=== PATIENT | male | born 1965 | race Caucasian/White ===

== ENCOUNTER 2017-05-26 06:49 | Day surgery (SDC) | payer OTHER ==
[2017-05-22 12:25] VITALS: BMI 32.7
[2017-05-26] MEDS ORDERED: PROPOFOL 20 ML ONE ×3 (06:52→09:16)
[2017-05-26] MEDS ORDERED: LIDOCAINE HCL/PF 2% SDV 5ML VIAL ONE (06:52)
[2017-05-26 09:26] VITALS: TEMP 98.1
[2017-05-26 09:49] VITALS: BP 125/69; PULSE 60
--- NOTE | 2017-05-27 11:28 | PATH ---
Surgical Pathology Report Patient Name: MORIS REYES [facility]. Rec. #: [id number] /Age/Gender: 1965 (Age: 51) / M Account: [id number] Location: [facility]-ENDOSCOPY Taken: 05/26/2017 Received: 05/26/2017 Reported: 05/27/2017 Physicians: Moris Koenig M.D. Specimen(s) Received BX PROXIMAL RIGHT COLON Clinical History Rule out colon cancer Polyps Final Diagnosis COLON, PROXIMAL RIGHT, POLYPECTOMY: COLONIC POLYP WITH SERRATED ARCHITECTURE AND AREAS CONSISTENT WITH SESSILE SERRATED ADENOMA. SUBMUCOSAL ADIPOSE TISSUE CONSISTENT WITH LIPOMA PRESENT. Comment: Sessile serrated polyps are not dysplastic (adenomatous). They share morphologic features with hyperplastic polyps and, in the past, have been referred to as such. However, recent studies indicate that they harbor BRAF mutations and may represent neoplastic precursors to a subset of sporadic, microsatellite unstable colon cancers. They are generally treated and followed similar to colonic adenomas. FRANCK Talavera and Rose, [facility] 2010, 139(5):9222-4667. Electronically Signed Tien Trotter M.D. Gross Description Received in formalin labeled "proximal right colon polyp," is a 0.7 x 0.6 x 0.3 cm harrington, polypoid portion of soft tissue. The specimen is submitted in toto in one cassette. 05/26/201705/26/2017
== END 2017-05-26 09:58 | disposition home or self-care (01) ==
LOC: FASU-ENDO 06:49
PROVIDERS: ATTEND Internal Medicine Gastroenterology
PROC: 0DBK8ZX Excision of Ascending Colon, Via Natural or Artificial Opening Endoscopic, Diagnostic (ICD-10-PCS; principal; 2017-05-26 08:50)
PROC: 3E0H8GC Introduction of Other Therapeutic Substance into Lower GI, Via Natural or Artificial Opening Endoscopic (ICD-10-PCS; 2017-05-26 08:50)
DX: Z12.11 Encounter for screening for malignant neoplasm of colon (principal); K63.89 Other specified diseases of intestine
CPT/HCPCS: 88305-TC

== ENCOUNTER 2023-06-16 07:44 | Day surgery (SDC) | payer OTHER ==
[2023-06-12 13:27] VITALS: BMI 32.1
[2023-06-16 09:37] VITALS: RESP 20; TEMP 97.4
[2023-06-16 09:39] VITALS: BP 100/74; PULSE 64
== END 2023-06-16 09:35 | disposition home or self-care (01) ==
LOC: FASU-ENDO 07:44
PROVIDERS: ATTEND Internal Medicine Gastroenterology
PROC: 0DJD8ZZ Inspection of Lower Intestinal Tract, Via Natural or Artificial Opening Endoscopic (ICD-10-PCS; principal; 2023-06-16 08:44)
DX: Z12.11 Encounter for screening for malignant neoplasm of colon (principal); Z86.010 Personal history of colon polyps